=== PATIENT | male | born 1950 | race Caucasian/White ===

== ENCOUNTER → 2018-04-13 17:51 | Outpatient (CLI) | payer MEDICARE, MEDICAID, SELFPAY ==
--- NOTE | 2018-04-13 17:55 | DI.RAD.S_ITS ---
PROCEDURE: XR ABDOMEN MIN 2V INDICATIONS: swallowed crown/post TECHNIQUE: 2 views of the abdomen were acquired. COMPARISON: [facility], CR, XR CHEST 2V, 04/13/2018, 17:58. FINDINGS: Surgical changes and devices: None. Bowel: No pneumoperitoneum. The bowel gas pattern is normal. Soft tissues: No masses; visualized solid organ contours appear normal in size. No suspicious abdominal calcifications. No radiopaque foreign body identified. Bones: No suspicious bony abnormalities. IMPRESSION: Abdomen without acute radiographic abnormalities. No radiopaque foreign bodies identified. Dictated by: Hayden Liang M.D. on 04/13/2018 at 23:18 Approved by: Hayden Liang M.D. on 04/13/2018 at 23:20
--- NOTE | 2018-04-13 17:55 | DI.RAD.S_ITS ---
PROCEDURE: XR CHEST 2V INDICATIONS: swallowed crown/post TECHNIQUE: 2 views of the chest were acquired. COMPARISON: None. FINDINGS: Surgical changes and devices: None. Lungs and pleura: No pleural effusions or pneumothorax. There is hyperaeration with flattening of the bilateral hemidiaphragms. Minimal interstitial prominence. Mild streaky bibasilar opacities compatible with scarring and/or atelectasis. Mediastinum: Mediastinal contours are normal. Heart size is normal. Tortuous course of the thoracic aorta. Bones and chest wall: No suspicious bony abnormalities. Soft tissues appear unremarkable. No radiopaque foreign bodies identified in the chest. IMPRESSION: 1. Chest without acute cardiopulmonary abnormalities. 2. Findings compatible with chronic obstructive pulmonary physiology. 3. No radiopaque foreign body identified in the imaged portions of the chest and upper abdomen. Dictated by: Hayden Liang M.D. on 04/13/2018 at 23:16 Approved by: Hayden Liang M.D. on 04/13/2018 at 23:18
== END ==
PROVIDERS: Visit Provider Physician Assistant
DX: T18.9XXA Foreign body of alimentary tract, part unspecified, initial encounter (principal)
CPT/HCPCS: 71046; 74019

== ENCOUNTER → 2019-08-23 14:01 | Outpatient (CLI) | payer MEDICARE, SELFPAY ==
[2019-08-23 14:32] LABS: Add Manual Diff / Slide Review NO; Basophils Absolute Auto 0 /uL (0-100); Eosinophils Absolute Auto 100 /uL (0-450); Eosinophils Percent Auto 1.2 % (2-4); Hematocrit 43.1 % (41-53); Hemoglobin 14.9 g/dL (13.5-17.5); Lymphocytes Absolute Auto 1600 /uL (1100-4500); Lymphocytes Percent Auto 21.6 % (25-40); Mean Corpuscular HGB Conc 34.7 % (30-36); Mean Corpuscular Hemoglobin 28.7 PG (26-34); Mean Corpuscular Volume 82.9 fL (80-100); Monocytes Absolute Auto 700 /uL (0-900); Monocytes Percent Auto 9.2 % (3-14); Neutrophils Absolute Auto 5100 /uL (1500-7000); Platelet Count 152 X10^3/uL (150-400); Red Cell Distribution Width 13.8 % (11.6-14.8); White Blood Cell Count 7.4 X10^3/uL (4.5-11.0)
[2019-08-23 14:54] LABS: Alanine Aminotransferase 32 IU/L (<50); Albumin 4.7 g/dL (3.5-5.0); Albumin Globulin Ratio 1.4 (1.0-2.8); Alkaline Phosphatase 58 U/L (38-126); Aspartate Aminotransferase 29 IU/L (17-59); BUN Creatinine Ratio 25.6 (6-22); Blood Urea Nitrogen 21 mg/dL (9-20); Calcium 9.5 mg/dL (8.4-10.2); Carbon Dioxide 24 mmol/L (22-32); Chloride 102 mmol/L (98-107); Cholesterol 131 mg/dL (140-199); Estimated Glomerular Filt Rate > 60.0 mL/min (>60); Globulin 3.3 g/dL (1.7-4.1); Glucose 97 mg/dL (80-110); HDL Cholesterol 26 mg/dL (40-60); HEMOLYSIS < 15 (0-50); LDL Cholesterol Calculated 74 mg/dL (<100); Potassium 3.9 mmol/L (3.4-5.1); Sodium 136 mmol/L (137-145); Triglycerides 153 mg/dL (35-150)
[2019-08-23 15:25] LABS: Prostate Specific Antigen Scrn 1.29 ng/mL (0.1-4.0)
[2019-08-23 16:07] LABS: TSH w/ Reflex to FT4 5.66 uIU/mL (0.47-4.68)
[2019-08-23 16:38] LABS: Free T4, Direct Thyroxine 1.06 ng/dL (0.78-2.19)
== END ==
PROVIDERS: PCP Internal Medicine; Referring Provider Internal Medicine; Visit Provider Internal Medicine
DX: Z12.5 Encounter for screening for malignant neoplasm of prostate (principal); Z13.1 Encounter for screening for diabetes mellitus; Z13.220 Encounter for screening for lipoid disorders; Z13.6 Encounter for screening for cardiovascular disorders; B18.2 Chronic viral hepatitis C; I10 Essential (primary) hypertension
CPT/HCPCS: 36415; 80053; 80061; 84439; 84443; 85025; G0103

== ENCOUNTER → 2020-05-15 16:38 | Outpatient (CLI) | payer MEDICARE, SELFPAY ==
[2020-05-15 18:25] LABS: Add Manual Diff / Slide Review NO; Basophils Absolute Auto 0 /uL (0-100); Basophils Percent Auto 0.1 % (0-2); Eosinophils Absolute Auto 100 /uL (0-450); Hematocrit 41.5 % (41-53); Lymphocytes Absolute Auto 1800 /uL (1100-4500); Mean Corpuscular HGB Conc 33.6 % (30-36); Mean Corpuscular Volume 83.3 fL (80-100); Monocytes Absolute Auto 700 /uL (0-900); Monocytes Percent Auto 9.8 % (3-14); Neutrophils Absolute Auto 4800 /uL (1500-7000); Neutrophils Percent Auto 64.1 % (50-75); Platelet Count 154 X10^3/uL (150-400); Red Blood Cell Count 4.99 X10^6/uL (4.5-5.9); Red Cell Distribution Width 14.1 % (11.6-14.8); White Blood Cell Count 7.4 X10^3/uL (4.5-11.0)
[2020-05-15 18:26] LABS: INR 1.1 (0.9-1.3)
[2020-05-15 18:45] LABS: Alanine Aminotransferase 23 IU/L (<50); Albumin 4.1 g/dL (3.5-5.0); Albumin Globulin Ratio 1.5 (1.0-2.8); Alkaline Phosphatase 58 U/L (38-126); Aspartate Aminotransferase 24 IU/L (17-59); BUN Creatinine Ratio 23.2 (6-22); Bilirubin Total 0.7 mg/dL (0.2-1.3); Blood Urea Nitrogen 23 mg/dL (9-20); Carbon Dioxide 28 mmol/L (22-32); Chloride 102 mmol/L (98-107); Estimated Glomerular Filt Rate > 60.0 mL/min (>60); Globulin 2.8 g/dL (1.7-4.1); Glucose 89 mg/dL (80-110); HEMOLYSIS < 15 (0-50); Potassium 3.9 mmol/L (3.4-5.1); Sodium 136 mmol/L (137-145); Total Protein 6.9 g/dL (6.3-8.2)
== END ==
PROVIDERS: PCP Internal Medicine; Referring Provider Internal Medicine; Visit Provider Internal Medicine
DX: B18.2 Chronic viral hepatitis C (principal); I10 Essential (primary) hypertension; K74.60 Unspecified cirrhosis of liver
CPT/HCPCS: 36415; 80053; 85025; 85610

== ENCOUNTER → 2021-10-03 09:10 | Outpatient (CLI) | payer MEDICARE, MEDICAID, SELFPAY ==
[2021-10-03 11:08] LABS: Add Manual Diff / Slide Review NO; Basophils Absolute Auto 0 /uL (0-100); Basophils Percent Auto 0.1 % (0-2); Eosinophils Absolute Auto 100 /uL (0-450); Eosinophils Percent Auto 1.3 % (2-4); Hematocrit 43.9 % (41-53); Hemoglobin 15.1 g/dL (13.5-17.5); Lymphocytes Absolute Auto 1800 /uL (1100-4500); Lymphocytes Percent Auto 23.8 % (25-40); Mean Corpuscular HGB Conc 34.3 % (30-36); Mean Corpuscular Hemoglobin 28.3 PG (26-34); Mean Corpuscular Volume 82.5 fL (80-100); Monocytes Absolute Auto 600 /uL (0-900); Monocytes Percent Auto 8.1 % (3-14); Neutrophils Absolute Auto 5100 /uL (1500-7000); Neutrophils Percent Auto 66.7 % (50-75); Platelet Count 189 X10^3/uL (150-400); Red Blood Cell Count 5.32 X10^6/uL (4.5-5.9); White Blood Cell Count 7.7 X10^3/uL (4.5-11.0)
[2021-10-03 11:34] LABS: Alanine Aminotransferase 27 IU/L (<50); Albumin 4.7 g/dL (3.5-5.0); Albumin Globulin Ratio 1.6 (1.0-2.8); Alkaline Phosphatase 61 U/L (38-126); Aspartate Aminotransferase 29 IU/L (17-59); BUN Creatinine Ratio 28.3 (6-22); Bilirubin Total 1.4 mg/dL (0.2-1.3); Blood Urea Nitrogen 26 mg/dL (9-20); Calcium 9.2 mg/dL (8.4-10.2); Carbon Dioxide 26 mmol/L (22-32); Chloride 101 mmol/L (98-107); Cholesterol 138 mg/dL (140-199); Estimated Glomerular Filt Rate > 60 mL/min (>60); Glucose 99 mg/dL (80-110); HDL Cholesterol 30 mg/dL (40-60); HEMOLYSIS < 15 (0-50); LDL Cholesterol Calculated 85 mg/dL (<100); Potassium 3.9 mmol/L (3.4-5.1); Sodium 140 mmol/L (137-145); Total Protein 7.7 g/dL (6.3-8.2); Triglycerides 115 mg/dL (35-150)
[2021-10-04 06:34] LABS: Alpha Fetoprotein 2.5 ng/mL (0.0-8.4)
== END ==
PROVIDERS: PCP Internal Medicine; Referring Provider Internal Medicine; Visit Provider Internal Medicine
DX: I10 Essential (primary) hypertension (principal); K74.60 Unspecified cirrhosis of liver; B18.2 Chronic viral hepatitis C
CPT/HCPCS: 36415; 80053; 80061; 82105; 85025; 87522

== ENCOUNTER → 2022-01-08 13:52 | Outpatient (CLI) | payer MEDICARE, MEDICAID, SELFPAY ==
[2022-01-09 11:51] LABS: Mumps Virus IgG Antibody >300.0 AU/mL (Immune >10.9); Rubeola Measles IgG > 300.0 AU/mL (Immune >16.4)
[2022-01-10 14:51] LABS: QuantiFERON Mitogen Value >10.00 IU/mL (.); QuantiFERON Nil Value 0.05 IU/mL (.); QuantiFERON TB Gold Plus Negative (Negative); QuantiFERON TB1 Ag Value 0.06 IU/mL (.); QuantiFERON TB2 Ag Value 0.05 IU/mL (.)
[2022-01-10 15:41] LABS: Rubella Antibody IgG > 350.0 IU/mL (>15)
== END ==
PROVIDERS: PCP Internal Medicine; Referring Provider Internal Medicine; Visit Provider Internal Medicine
DX: Z01.84 Encounter for antibody response examination (principal)
CPT/HCPCS: 36415; 86480; 86735; 86762; 86765

== ENCOUNTER → 2022-06-24 16:45 | Outpatient (CLI) | payer MEDICARE, MEDICAID, SELFPAY ==
[2022-06-24 17:41] LABS: Add Manual Diff / Slide Review NO; Basophils Absolute Auto 0 /uL (0-100); Basophils Percent Auto 0.2 % (0-2); Eosinophils Absolute Auto 100 /uL (0-450); Eosinophils Percent Auto 1.6 % (2-4); Hematocrit 43.6 % (41-53); Hemoglobin 14.9 g/dL (13.5-17.5); Lymphocytes Absolute Auto 2200 /uL (1100-4500); Lymphocytes Percent Auto 23.8 % (25-40); Mean Corpuscular HGB Conc 34.1 % (30-36); Mean Corpuscular Hemoglobin 28.2 PG (26-34); Mean Corpuscular Volume 82.7 fL (80-100); Monocytes Absolute Auto 800 /uL (0-900); Monocytes Percent Auto 8.7 % (3-14); Neutrophils Absolute Auto 5900 /uL (1500-7000); Neutrophils Percent Auto 65.7 % (50-75); Platelet Count 183 X10^3/uL (150-400); Red Blood Cell Count 5.27 X10^6/uL (4.5-5.9); Red Cell Distribution Width 14.2 % (11.6-14.8)
[2022-06-24 18:06] LABS: Alanine Aminotransferase 28 IU/L (<50); Albumin 4.7 g/dL (3.5-5.0); Albumin Globulin Ratio 1.5 (1.0-2.8); Alkaline Phosphatase 60 U/L (38-126); Aspartate Aminotransferase 28 IU/L (17-59); BUN Creatinine Ratio 34.7 (6-22); Blood Urea Nitrogen 35 mg/dL (9-20); Calcium 9.4 mg/dL (8.4-10.2); Carbon Dioxide 24 mmol/L (22-32); Chloride 100 mmol/L (98-107); Estimated Glomerular Filt Rate > 60 mL/min (>60); Globulin 3.2 g/dL (1.7-4.1); Glucose 88 mg/dL (80-110); HEMOLYSIS < 15 (0-50); Potassium 3.4 mmol/L (3.4-5.1); Sodium 136 mmol/L (137-145); Total Protein 7.9 g/dL (6.3-8.2)
== END ==
PROVIDERS: PCP Internal Medicine; Referring Provider Internal Medicine; Visit Provider Internal Medicine
DX: B18.2 Chronic viral hepatitis C (principal); I10 Essential (primary) hypertension; J45.20 Mild intermittent asthma, uncomplicated; K74.60 Unspecified cirrhosis of liver
CPT/HCPCS: 36415; 80053; 85025

== ENCOUNTER → 2022-12-24 08:33 | Outpatient (CLI) | payer MEDICARE, MEDICAID, SELFPAY ==
[2022-12-24 10:08] LABS: Add Manual Diff / Slide Review NO; Basophils Absolute Auto 0 /uL (0-100); Basophils Percent Auto 0.2 % (0-2); Eosinophils Absolute Auto 100 /uL (0-450); Eosinophils Percent Auto 1.7 % (2-4); Hematocrit 41.5 % (41-53); Hemoglobin 14.3 g/dL (13.5-17.5); Lymphocytes Absolute Auto 1500 /uL (1100-4500); Lymphocytes Percent Auto 25.5 % (25-40); Mean Corpuscular HGB Conc 34.5 % (30-36); Mean Corpuscular Hemoglobin 29.1 PG (26-34); Mean Corpuscular Volume 84.3 fL (80-100); Monocytes Absolute Auto 700 /uL (0-900); Monocytes Percent Auto 11.5 % (3-14); Neutrophils Absolute Auto 3600 /uL (1500-7000); Neutrophils Percent Auto 61.1 % (50-75); Platelet Count 161 X10^3/uL (150-400); Red Blood Cell Count 4.92 X10^6/uL (4.5-5.9); Red Cell Distribution Width 14.1 % (11.6-14.8); White Blood Cell Count 5.9 X10^3/uL (4.5-11.0)
[2022-12-24 10:36] LABS: Alanine Aminotransferase 24 IU/L (<50); Albumin 4.3 g/dL (3.5-5.0); Albumin Globulin Ratio 1.6 (1.0-2.8); Alkaline Phosphatase 52 U/L (38-126); Aspartate Aminotransferase 24 IU/L (17-59); BUN Creatinine Ratio 26.4 (6-22); Bilirubin Total 1.3 mg/dL (0.2-1.3); Blood Urea Nitrogen 29 mg/dL (9-20); Calcium 9.5 mg/dL (8.4-10.2); Carbon Dioxide 27 mmol/L (22-32); Chloride 100 mmol/L (98-107); Estimated Glomerular Filt Rate > 60 mL/min (>60); Globulin 2.7 g/dL (1.7-4.1); Glucose 85 mg/dL (80-110); HEMOLYSIS < 15 (0-50); Potassium 3.9 mmol/L (3.4-5.1); Sodium 137 mmol/L (137-145)
== END ==
PROVIDERS: PCP Internal Medicine; Referring Provider Internal Medicine; Visit Provider Internal Medicine
DX: B18.2 Chronic viral hepatitis C (principal); K74.60 Unspecified cirrhosis of liver; I10 Essential (primary) hypertension
CPT/HCPCS: 36415; 80053; 85025

== ENCOUNTER → 2023-12-29 14:53 | Outpatient (CLI) | payer MEDICARE, MEDICAID, SELFPAY ==
[2023-12-29 15:49] LABS: Add Manual Diff / Slide Review NO; Basophils Absolute Auto 0 /uL (0-100); Basophils Percent Auto 0.1 % (0-2); Eosinophils Absolute Auto 100 /uL (0-450); Eosinophils Percent Auto 0.8 % (2-4); Hematocrit 44.2 % (41-53); Lymphocytes Absolute Auto 1400 /uL (1100-4500); Lymphocytes Percent Auto 16.4 % (25-40); Mean Corpuscular HGB Conc 33.9 % (30-36); Mean Corpuscular Hemoglobin 28.1 PG (26-34); Monocytes Absolute Auto 800 /uL (0-900); Monocytes Percent Auto 9.4 % (3-14); Neutrophils Absolute Auto 6400 /uL (1500-7000); Neutrophils Percent Auto 73.3 % (50-75); Platelet Count 201 X10^3/uL (150-400); Red Blood Cell Count 5.33 X10^6/uL (4.5-5.9); Red Cell Distribution Width 14.3 % (11.6-14.8); White Blood Cell Count 8.7 X10^3/uL (4.5-11.0)
[2023-12-29 15:59] LABS: Alanine Aminotransferase 32 IU/L (<50); Albumin 4.3 g/dL (3.5-5.0); Albumin Globulin Ratio 1.4 (1.0-2.8); Alkaline Phosphatase 67 U/L (38-126); Aspartate Aminotransferase 29 IU/L (17-59); BUN Creatinine Ratio 25.6 (6-22); Bilirubin Total 1.1 mg/dL (0.2-1.3); Blood Urea Nitrogen 30 mg/dL (9-20); Calcium 9.5 mg/dL (8.4-10.2); Carbon Dioxide 22 mmol/L (22-32); Chloride 102 mmol/L (98-107); Estimated Glomerular Filt Rate > 60 mL/min (>60); Globulin 3.1 g/dL (1.7-4.1); Glucose 99 mg/dL (80-110); HEMOLYSIS < 15 (0-50); Potassium 4.2 mmol/L (3.4-5.1); Sodium 134 mmol/L (137-145); Total Protein 7.4 g/dL (6.3-8.2)
== END ==
PROVIDERS: PCP Internal Medicine; Referring Provider Internal Medicine; Visit Provider Internal Medicine
DX: I10 Essential (primary) hypertension (principal); B18.2 Chronic viral hepatitis C; K74.60 Unspecified cirrhosis of liver; D64.9 Anemia, unspecified
CPT/HCPCS: 80053; 85025

== ENCOUNTER → 2024-07-30 16:27 | Outpatient (CLI) | payer MEDICARE, MEDICAID, SELFPAY ==
--- NOTE | 2024-07-30 16:30 | DI.RAD.S_ITS ---
PROCEDURE: XR ACUTE ABDOMEN SERIES INDICATIONS: constipation TECHNIQUE: One view chest and two views of the abdomen were acquired. COMPARISON: None. FINDINGS: Surgical changes and devices: None. Chest: Lungs are clear. Heart size is normal. No pleural effusions. No pneumoperitoneum. Chronic interstitial changes. Atherosclerotic vascular calcification noted in the aortic arch. Abdomen: Bowel gas pattern is normal. No suspicious calcifications. Visualized solid organ contours appear normal. Bones: No suspicious bony lesions. IMPRESSION: No acute abnormality. Approved by: Nakul Carpenter M.D. on 08/02/2024 at 11:51
== END ==
PROVIDERS: PCP Internal Medicine; Referring Provider Internal Medicine; Visit Provider Internal Medicine
DX: I70.0 Atherosclerosis of aorta (principal); K59.00 Constipation, unspecified
CPT/HCPCS: 74022

== ENCOUNTER → 2024-08-13 11:55 | Outpatient (CLI) | payer MEDICARE, MEDICAID, SELFPAY ==
[2024-08-13 12:15] LABS: Add Manual Diff / Slide Review NO; Basophils Absolute Auto 0 /uL (0-100); Basophils Percent Auto 0.1 % (0-2); Eosinophils Absolute Auto 100 /uL (0-450); Eosinophils Percent Auto 0.9 % (2-4); Hemoglobin 14.4 g/dL (13.5-17.5); Lymphocytes Absolute Auto 1300 /uL (1100-4500); Lymphocytes Percent Auto 16.9 % (25-40); Mean Corpuscular HGB Conc 34.2 % (30-36); Mean Corpuscular Hemoglobin 28.5 PG (26-34); Mean Corpuscular Volume 83.4 fL (80-100); Monocytes Absolute Auto 800 /uL (0-900); Monocytes Percent Auto 9.9 % (3-14); Neutrophils Absolute Auto 5600 /uL (1500-7000); Neutrophils Percent Auto 72.2 % (50-75); Platelet Count 173 X10^3/uL (150-400); Red Blood Cell Count 5.04 X10^6/uL (4.5-5.9); Red Cell Distribution Width 14.4 % (11.6-14.8); White Blood Cell Count 7.7 X10^3/uL (4.5-11.0)
[2024-08-13 12:29] LABS: Erythrocyte Sedimentation Rate 19 MM/HR (0-15)
[2024-08-13 12:39] LABS: Alanine Aminotransferase 33 IU/L (<50); Albumin 4.6 g/dL (3.5-5.0); Albumin Globulin Ratio 1.6 (1.0-2.8); Alkaline Phosphatase 77 U/L (38-126); Aspartate Aminotransferase 31 IU/L (17-59); BUN Creatinine Ratio 31.3 (6-22); Bilirubin Total 1.4 mg/dL (0.2-1.3); Blood Urea Nitrogen 31 mg/dL (9-20); Calcium 9.5 mg/dL (8.4-10.2); Carbon Dioxide 22 mmol/L (22-32); Chloride 99 mmol/L (98-107); Estimated Glomerular Filt Rate > 60 mL/min (>60); Globulin 2.8 g/dL (1.7-4.1); Glucose 110 mg/dL (70-99); HEMOLYSIS < 15 (0-50); Lipase 232 U/L (23-300); Sodium 133 mmol/L (137-145); Total Protein 7.4 g/dL (6.3-8.2)
== END ==
PROVIDERS: PCP Internal Medicine; Referring Provider Internal Medicine; Visit Provider Internal Medicine
DX: B18.2 Chronic viral hepatitis C (principal); K74.60 Unspecified cirrhosis of liver; I10 Essential (primary) hypertension; R10.9 Unspecified abdominal pain
CPT/HCPCS: 36415; 80053; 83690; 85025; 85651

== ENCOUNTER → 2024-08-18 15:28 | Outpatient (CLI) | payer MEDICARE, MEDICAID, SELFPAY ==
--- NOTE | 2024-08-18 15:29 | DI.CT.S_ITS ---
PROCEDURE: CT ABDOMEN PELVIS W CON INDICATIONS: left abd pain TECHNIQUE: After the administration of intravenous contrast, axial sections acquired from the lung bases to the pubic symphysis. Coronal and sagittal reformats were performed. For radiation dose reduction, the following was used: automated exposure control, adjustment of mA and/or kV according to patient size. COMPARISON: [facility], CR, XR ACUTE ABDOMEN SERIES, 07/30/2024, 16:26. FINDINGS: Image quality: Diagnostic. Lower Chest: Right lower lobe ground-glass pulmonary nodule measuring 0.6 cm, (5/16). ABDOMEN: Liver: Heterogeneous appearance. Left lobe oval nodule measuring 4 cm, (2/28). Indeterminate. Cyst measuring 5.6 cm. Liver surface appears nodular. Gallbladder: Multiple layering gallstones. No pericholecystic fluid. Biliary ducts: No biliary dilation. Pancreas: Ill-defined hypodense lesion in the neck of the pancreas measuring 3.7 x 3.1 cm, (2/47). Upstream pancreatic ductal dilatation measuring 1 cm. SMA encasement. Splenic artery encasement. Stranding adjacent to the celiac artery suggesting encasement. Splenic vein is occluded. There is tumor thrombus at the portal vein confluence measuring 1.8 cm, (3/47). SMV confluence encasement. Spleen: Size is within normal limits. Adrenal Glands: No adrenal nodules. Kidneys and Ureters: No hydronephrosis. Right kidney inferior pole mass measuring 1.1 cm, (2/49). Stomach and Bowel: No diverticulitis. The appendix is not dilated. No small bowel obstruction. The stomach appears thickened. Peritoneum: No abnormal intraperitoneal fluid. No free air. Ventral Wall: No significant ventral hernia. Abdominal Nodes: No retroperitoneal or mesenteric adenopathy by size criteria. Vessels: Pancreatic vascular involvement as described above. No abdominal aortic aneurysm. There is calcified atherosclerotic plaque. Upper abdominal varices. PELVIS: Pelvic Organs: Prostatomegaly. Heterogeneous appearance. Bladder: No bladder wall thickening, accounting for underdistention. Pelvic Nodes: No enlarged lymph nodes. Miscellaneous: Fat containing left inguinal hernia. Bones: No aggressive osseous abnormality. IMPRESSION: 1. Mass in the neck of the pancreas measuring 3.7 cm. Most consistent with pancreatic adenocarcinoma. Vascular involvement. Tumor thrombus at the portal vein confluence. -Pancreas multiphase CT may be helpful for further evaluation of the vasculature. 2. Concern for lesion in the left liver measuring 4 cm. Density is somewhat atypical for pancreatic metastasis. Recommend further evaluation with liver MRI. 3. Question cirrhosis. Layering gallstones. No ascites. 4. Small right renal mass measuring 1.1 cm. This could represent a small renal cell carcinoma. 5. Question thickening of the stomach. However, this could be due to underdistention. 6. Right lower lobe ground-glass pulmonary nodule measuring 0.6 cm. Dictated by: Jason Dangelo M.D. on 08/18/2024 at 16:50 Approved by: Jason Dangelo M.D. on 08/18/2024 at 17:14
== END ==
PROVIDERS: PCP Internal Medicine; Referring Provider Internal Medicine; Visit Provider Internal Medicine
DX: K86.9 Disease of pancreas, unspecified (principal); N28.89 Other specified disorders of kidney and ureter; K80.80 Other cholelithiasis without obstruction; R91.1 Solitary pulmonary nodule; N40.0 Benign prostatic hyperplasia without lower urinary tract symptoms; R10.9 Unspecified abdominal pain
CPT/HCPCS: 74177; Q9967

== ENCOUNTER 2024-12-19 08:20 | Emergency (ER) | payer MEDICARE, MEDICAID, SELFPAY ==
[2024-12-19] VITALS (21 sets, daily range): BP systolic 121–191; BP diastolic 64–100; PULSE 87–133; RESP 20–26; TEMP 36.4; O2SAT 83–98; BMI 22.4
--- NOTE | 2024-12-19 08:37 | ED_ITS ---
HPI - Abdominal Pain General Chief Complaint: Abdominal Pain Stated Complaint: Wokeup:in pain - all abd and lower back Time Seen by Provider: 12/19/24 08:34 History of Present Illness HPI narrative: Patient is 74-year-old male history of pancreatic cancer undergoing chemotherapy every 2 weeks to 4 chemo this week, hypertension and chronic pain presenting today with pretty severe abdominal pain. He takes oxycodone daily. He says he is usually able to manage it without any kind of problem however 2:45am this morning he woke up with pretty severe pain. No nausea no vomiting. He has taken multiple doses of oxycodone he says it is not working. Not passing gas no chest pain no fever no chills. Related Data Previous Rx's ?Medication ?Instructions ?Recorded clotrimazole 1 % topical cream 1 applictn topical TID 4 weeks 04/06/19 #113 grams fluticasone 500 mcg-salmeterol 50 1 inh inhalation BID #180 ea 12/15/23 mcg/dose blistr powdr for inhalation (Advair Diskus) albuterol sulfate 90 mcg/actuation 2 puff inhalation Q 6H PRN 01/30/24 aerosol inhaler shortness of breath or wheez ing #8.5 grams lisinopril 40 mg tablet 40 mg PO DAILY #90 tabs 04/25 10/15 sodium,potassium,mag sulfates 17.5 See Rx Instructions PO .COMPLEX 05/27/24 gram-3.13 gram-1.6 gram oral soln #354 mL (Suprep Bowel Prep Kit) nebulizers (Compact Compressor #1 ea 07/30/24 Nebulizer) oxycodone 5 mg tablet 5 mg PO Q4H PRN pain #60 tab s 09/13/24 hydrochlorothiazide 25 mg tablet 25 mg PO DAILY #90 ta bs 10/26/24 montelukast 10 mg tablet 10 mg PO DAILY #90 tabs 08/15 omeprazole 20 mg capsule,delayed 20 mg PO DAILY #90 ca ps 10/26/24 release albuterol sulfate 2.5 mg/3 mL 2.5 mg (3 mL) inhalation Q4H PRN 12/10/24 (0.083 %) solution for nebulization shortness of breat h or wheezing #180 mL Allergies Allergy/AdvReac Type Severity Reaction Status Date / Time No Known Drug Allergies Allergy Verified 08/13/24 11:31 Patient History Medical History Pancreatic adenocarcinoma Basal cell carcinoma Skin cancer (~1997) Alcoholism in recovery Hepatic cirrhosis due to chronic hepatitis C infection (~2006) Chronic hepatitis C (~2006) Asthma, mild intermittent, well-controlled (~1949) Essential hypertension Surgical History Anesthesia Status post Mohs surgery (~1999) History of hemorrhoidectomy (~1991) S/P rotator cuff repair (~2007) S/P carpal tunnel release (~2007) S/P hernia repair (~1962) Family History Mother Stroke Father Cancer Heart disease Social History Smoking Status: Never smoker Exam Initial Vital Signs Initial Vital Signs: Vital Signs Pulse Rate 101 H 12/19/24 08:34 Blood Pressure 191/79 H 12/19/24 08:34 Pulse Oximetry 95 12/19/24 08:34 GENERAL: Alert 74-year-old male in significant pain and in no acute distress. HEENT: Head atraumatic,EOMI, pupils reactive, face symmetric, moist mucous membranes CARDIOVASCULAR: Regular rate and rhythm without murmurs, rubs or gallops. RESPIRATORY: Breath sounds equal bilaterally, no wheezes rales or rhonchi. ABDOMEN: Soft, mildly diffusely tender no guarding no real EXTREMITIES: Normal range of motion, no clubbing or edema. Neurovascularly intact NEUROLOGICAL: Alert and oriented x4.Normal gait and speech. SKIN: Warm, dry, no laceration, no petechiae, no rashes or lesions. Course Orders Ordered: ED Orders 12/19/24 08:38 CT abdomen pelvis w con Stat 12/19/24 09:20 CBC Auto Diff [Complete Blood Count AUTO DIFF] Stat CMP [Comprehensive Metabolic Panel] Stat Lactate (Lactic Acid) Stat Lipase Stat 12/19/24 09:57 US abdomen limited Stat 12/19/24 11:59 Ictotest Urine Stat UA Complete [Urinalysis and Microscopic] Stat 12/19/24 12:05 Blood Culture Stat 12/19/24 14:05 Lactate (Lactic Acid) Stat Hydromorphone HCl (Hydromorphone 1 Mg/Ml Syringe) 1 mg IV Q2HR PRN PRN Reason: Pain, Moderate (4-6) Last Admin: 12/19/24 16:02 Dose: 1 mg Documented By: Admin: 12/19/24 08:51 Dose: 1 mg Documented By: EB Sodium Chloride (Normal Saline 0.9%) 1,000 mls @ 125 mls/hr IV CONT ILA Last Admin: 12/19/24 15:26 Dose: 125 mls/hr Documented By: EB Discontinued Medications Hydromorphone HCl (Hydromorphone 1 Mg/Ml Syringe) 1 mg IV NOW ONE Stop: 12/19/24 10:00 Last Admin: 12/19/24 10:08 Dose: 1 mg Documented By: Hydromorphone HCl (Hydromorphone Hcl 0.5 Mg/0.5 Ml Syringe) 0.5 mg IV Q1H PRN PRN Reason: Pain, Severe (7-10) Last Admin: 12/19/24 14:31 Dose: 0.5 mg Documented By: Admin: 12/19/24 12:51 Dose: 0.5 mg Documented By: Admin: 12/19/24 11:10 Dose: 0.5 mg Documented By: JORDI Sodium Chloride (Normal Saline 0.9%) 1,000 mls @ 1,000 mls/hr IV BOLUS ONE Stop: 12/19/24 10:56 Last Infusion: 12/19/24 12:08 Dose: Infused Documented By: Admin: 12/19/24 10:05 Dose: 1,000 mls/hr Documented By: Sodium Chloride (Normal Saline 0.9%) 1,944.54 mls @ 648.18 mls/hr 30 ml/kg infuse over 3 hr (1944.54 ml) IV NOW ONE Stop: 12/19/24 14:48 Last Infusion: 12/19/24 15:21 Dose: Infused Documented By: Admin: 12/19/24 12:26 Dose: 648.18 mls/hr Documented By: JORDI Piperacillin Sod/Tazobactam (Sod 4.5 gm/ Sodium Chloride) 100 mls @ 200 mls/hr IV NOW ONE Stop: 12/19/24 11:50 Last Infusion: 12/19/24 13:10 Dose: Infused Documented By: Admin: 12/19/24 12:25 Dose: 200 mls/hr Documented By: JORDI Ondansetron HCl (Ondansetron 4 Mg/2 Ml Inj) 4 mg IV NOW ONE Stop: 12/19/24 08:39 Last Admin: 12/19/24 08:55 Dose: 4 mg Documented By: JORDI Vital Signs Vital signs: Vital Signs - 8 hr 12/19/24 08:34 12/19/24 08:34 12/19/24 08:36 Temperature 97.6 F Pulse Rate 101 H 97 H Respiratory Rate 20 Blood Pressure 191/79 H 191/79 H Pulse Oximetry 95 95 Oxygen Delivery Method Room Air 12/19/24 08:45 12/19/24 08:45 12/19/24 09:04 Temperature Pulse Rate 93 H 106 H Respiratory Rate 25 H 24 Blood Pressure 151/74 H Pulse Oximetry 98 83 L Oxygen Delivery Method 12/19/24 09:06 12/19/24 09:06 12/19/24 09:15 Temperature Pulse Rate 95 H 90 Respiratory Rate 24 25 H Blood Pressure 158/68 H Pulse Oximetry 97 96 Oxygen Delivery Method 12/19/24 09:15 12/19/24 09:30 12/19/24 09:30 Temperature Pulse Rate 87 Respiratory Rate 23 Blood Pressure 154/77 H 149/73 H Pulse Oximetry 96 Oxygen Delivery Method 12/19/24 09:57 12/19/24 09:57 12/19/24 10:00 Temperature Pulse Rate 91 H Respiratory Rate 23 Blood Pressure 134/79 142/80 H Pulse Oximetry 96 Oxygen Delivery Method 12/19/24 10:00 12/19/24 10:30 12/19/24 10:30 Temperature Pulse Rate 92 H 89 Respiratory Rate 25 H 26 H Blood Pressure 179/82 H Pulse Oximetry 97 96 Oxygen Delivery Method 12/19/24 11:00 12/19/24 11:00 12/19/24 11:30 Temperature Pulse Rate 129 H Respiratory Rate Blood Pressure 168/83 H 133/66 Pulse Oximetry 97 Oxygen Delivery Method 12/19/24 11:30 12/19/24 11:49 12/19/24 11:49 Temperature Pulse Rate 109 H 133 H Respiratory Rate 23 Blood Pressure 169/76 H Pulse Oximetry 93 97 Oxygen Delivery Method 12/19/24 12:00 12/19/24 12:00 12/19/24 12:30 Temperature Pulse Rate 131 H Respiratory Rate Blood Pressure 166/79 H 159/76 H Pulse Oximetry 97 Oxygen Delivery Method 12/19/24 12:30 12/19/24 13:00 12/19/24 13:00 Temperature Pulse Rate 128 H 115 H Respiratory Rate 22 Blood Pressure 132/64 Pulse Oximetry 96 94 Oxygen Delivery Method 12/19/24 13:30 12/19/24 13:30 12/19/24 14:00 Temperature Pulse Rate 116 H Respiratory Rate 24 Blood Pressure 134/100 H 154/75 H Pulse Oximetry 96 Oxygen Delivery Method 12/19/24 14:00 12/19/24 14:30 12/19/24 14:30 Temperature Pulse Rate 117 H 113 H Respiratory Rate 24 25 H Blood Pressure 144/76 H Pulse Oximetry 96 94 Oxygen Delivery Method 12/19/24 15:00 12/19/24 15:00 12/19/24 15:30 Temperature Pulse Rate 119 H Respiratory Rate 24 Blood Pressure 121/71 126/76 Pulse Oximetry 94 Oxygen Delivery Method 12/19/24 15:30 Temperature Pulse Rate 121 H Respiratory Rate 20 Blood Pressure Pulse Oximetry 97 Oxygen Delivery Method MDM - Abdominal Pain Lab Data 12/19/24 09:20 12/19/24 09:20 Labs: Lab Results 12/19/24 12/19/24 12/19/24 Range/Units 09:20 11:20 11:59 WBC 10.7 (4.5-11.0) X10^3/uL RBC 3.99 L (4.5-5.9) X10^6/uL Hgb 11.6 L (13.5-17.5) g/dL Hct 33.8 L (41-53) % MCV 84.9 (80-100) fL MCH 29.1 (26-34) PG MCHC 34.3 (30-36) % RDW 17.8 H (11.6-14.8) % Plt Count 192 (150-400) X10^3/uL Neut % (Auto) 95.4 H (50-75) % Lymph % (Auto) 1.2 L (25-40) % Dickson % (Auto) 3.3 (3-14) % Eos % (Auto) 0.0 L (2-4) % Baso % (Auto) 0.1 (0-2) % Neut # (Auto) 74118 H (9546-5033) /uL Lymph # (Auto) 100 L (5875-0884) /uL Dickson # (Auto) 400 (0-900) /uL Eos # (Auto) 0 (0-450) /uL Baso # (Auto) 0 (0-100) /uL Sodium 127 L (137-145) mmol/L Potassium 3.3 L (3.4-5.1) mmol/L Chloride 93 L (98-107) mmol/L Carbon Dioxide 23 (22-32) mmol/L BUN 19 (9-20) mg/dL Creatinine 0.67 (0.66-1.25) mg/dL Estimated GFR > 60 (>60) mL/min BUN/Creatinine Ratio 28.4 H (6-22) Glucose 157 H (70-99) mg/dL Lactate 2.3 H 4.1 H* (0.7-2.1) mmol/L Calcium 8.7 (8.4-10.2) mg/dL Total Bilirubin 4.4 H (0.2-1.3) mg/dL AST 61 H (17-59) IU/L ALT 127 H (<50) IU/L Alkaline Phosphatase 636 H (38-126) U/L Total Protein 7.0 (6.3-8.2) g/dL Albumin 3.9 (3.5-5.0) g/dL Globulin 3.1 (1.7-4.1) g/dL Albumin/Globulin Ratio 1.3 (1.0-2.8) Lipase 35 (23-300) U/L Urine Color Yellow Urine Appearance Clear Urine pH 6.0 (4.5-8.0) Ur Specific Florence <=1.005 (1.000-1.035) Urine Protein Negative (Negative) Urine Glucose (UA) Negative (Negative) g/dL Urine Ketones Negative (NEGATIVE) Urine Occult Blood Negative (Negative) Urine Nitrate Negative (Negative) Urine Bilirubin 1+ H (NEGATIVE) Ur Bilirubin Confirm Positive H (Negative) Urine Urobilinogen 1.0 (0.2) E.U./dL Ur Leukocyte Esterase Negative (NEGATIVE) Urine RBC None seen (0-5/HPF) Urine WBC None seen (0-5/HPF) Ur Squamous Epith Cells None seen (0-5/HPF) Urine Bacteria Occasional (0-1) (None) Urine Yeast 0-1/hpf (None) Ur Culture Indicated? Cult not indicated Vol Urine Centrifuged 10ml (spun) 12/19/24 Range/Units 14:05 WBC (4.5-11.0) X10^3/uL RBC (4.5-5.9) X10^6/uL Hgb (13.5-17.5) g/dL Hct (41-53) % MCV (80-100) fL MCH (26-34) PG MCHC (30-36) % RDW (11.6-14.8) % Plt Count (150-400) X10^3/uL Neut % (Auto) (50-75) % Lymph % (Auto) (25-40) % Dickson % (Auto) (3-14) % Eos % (Auto) (2-4) % Baso % (Auto) (0-2) % Neut # (Auto) (4469-2598) /uL Lymph # (Auto) (7889-4212) /uL Dickson # (Auto) (0-900) /uL Eos # (Auto) (0-450) /uL Baso # (Auto) (0-100) /uL Sodium (137-145) mmol/L Potassium (3.4-5.1) mmol/L Chloride (98-107) mmol/L Carbon Dioxide (22-32) mmol/L BUN (9-20) mg/dL Creatinine (0.66-1.25) mg/dL Estimated GFR (>60) mL/min BUN/Creatinine Ratio (6-22) Glucose (70-99) mg/dL Lactate 2.7 H (0.7-2.1) mmol/L Calcium (8.4-10.2) mg/dL Total Bilirubin (0.2-1.3) mg/dL AST (17-59) IU/L ALT (<50) IU/L Alkaline Phosphatase (38-126) U/L Total Protein (6.3-8.2) g/dL Albumin (3.5-5.0) g/dL Globulin (1.7-4.1) g/dL Albumin/Globulin Ratio (1.0-2.8) Lipase (23-300) U/L Urine Color Urine Appearance Urine pH (4.5-8.0) Ur Specific Florence (1.000-1.035) Urine Protein (Negative) Urine Glucose (UA) (Negative) g/dL Urine Ketones (NEGATIVE) Urine Occult Blood (Negative) Urine Nitrate (Negative) Urine Bilirubin (NEGATIVE) Ur Bilirubin Confirm (Negative) Urine Urobilinogen (0.2) E.U./dL Ur Leukocyte Esterase (NEGATIVE) Urine RBC (0-5/HPF) Urine WBC (0-5/HPF) Ur Squamous Epith Cells (0-5/HPF) Urine Bacteria (None) Urine Yeast (None) Ur Culture Indicated? Vol Urine Centrifuged Imaging Data CT scan - abdomen/pelvis: Radiologist's Impression: PROCEDURE: CT ABDOMEN PELVIS W CON INDICATIONS: Prostate cancer severe pain TECHNIQUE: After the administration of intravenous contrast, axial sections acquired from the lung bases to the pubic symphysis. Coronal and sagittal reformats were performed. For radiation dose reduction, the following was used: automated exposure control, adjustment of mA and/or kV according to patient size. COMPARISON: [facility], CT, CT ABDOMEN PELVIS W CON, 08/18/2024, 16:32. FINDINGS: Image quality: Diagnostic. Lower Chest: Bibasilar scarring/atelectasis is seen. Heart size is enlarged, no pericardial effusion. Pacemaker leads are seen. Moderate to severe it atherosclerotic calcifications are seen in coronary arteries. Small hiatal hernia. ABDOMEN: Liver: No solid mass. Hepatomegaly. Cyst in right hepatic lobe is again seen. Previously described left lobe oval nodule now measures 4.8 x 5.2 cm in size compared to 4 cm on previous study series 2, image 40. Gallbladder: Distended gallbladder containing multiple calcified stones in its dependent portion. No gallbladder wall thickening. Biliary ducts: Prominent intrahepatic biliary ducts and common bile duct now measures up to 1.2 cm in diameter series 3, image 48. No gross calcified choledocholithiasis. Pancreas: Ill-defined hypodense mass involving pancreatic neck region with upstream pancreatic ductal dilatation not significantly changed from prior study. Mass currently measures 3.7 x 3.4 cm in size series 2, image 64. Encasement of splenic artery and SMA is again seen. Partial encasement of celiac axis is also noted. 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 Spleen: Mild splenomegaly, no discrete splenic lesion. Adrenal Glands: No adrenal nodules. Kidneys and Ureters: No hydronephrosis. No solid mass. Bilateral renal cortical cysts and peripelvic cysts are again seen unchanged from prior study. Previously described possible exophytic mass involving lower pole right kidney measures 1.1 cm in size is not significantly changed. Stomach and Bowel: There is no bowel obstruction or abnormal bowel wall thickening. Moderate fecal stasis in the colon is seen. No abscess collection. Peritoneum: No abnormal intraperitoneal fluid. No free air. Ventral Wall: No significant ventral hernia. Abdominal Nodes: No retroperitoneal or mesenteric adenopathy by size criteria. Vessels: Aorta and inferior vena cava are normal in size. PELVIS: Pelvic Organs: Enlarged prostate gland.. Bladder: No bladder wall thickening, accounting for underdistention. Pelvic Nodes: No enlarged lymph nodes. Miscellaneous: Left inguinal hernia containing fat only. Bones: No aggressive osseous abnormality. IMPRESSION: 1. Ill-defined mass involving neck of pancreas with adjacent vascular involvement and tumor thrombus in portal vein conference without significant change in overall tumor mass size compared to previous study. 2. Interval development of intra and extrahepatic biliary ductal dilatation without definite common bile duct stones seen. Finding likely represent tumor mass invasion of distal common bile duct or mass effect. 3. Interval increase in size of patient's known left hepatic lobe lesion as above concerning for metastatic disease. 4. Moderate to severe constipation and fecal impaction. No bowel obstruction. No free fluid or free air. 5. Possible small solid right renal mass unchanged from prior study. No obstructing renal stones or hydronephrosis. Dictated by: Manuel Strong M.D. on 12/19/2024 at 9:58 US - abdomen: Radiologist's Impression: PROCEDURE: US ABDOMEN LIMITED INDICATIONS: ruq TECHNIQUE: Real-time scanning was performed of the abdominal and retroperitoneal organs, with image documentation. COMPARISON: [facility], CT, CT ABDOMEN PELVIS W CON, 12/19/2024, 8:50. FINDINGS: Liver: Liver is mildly enlarged and measures 17.2 cm in length. Simple cyst is seen in right hepatic lobe measures 4.7 x 5.9 x 5.4 cm in size. Increased liver parenchymal echotexture is seen. No solid appearing hepatic lesion. Gallbladder: Distended gallbladder. Stones are seen in dependent portion of gallbladder lumen with gallbladder wall thickening. No definite sonographic Conway sign. Questionable pericholecystic fluid is seen. Biliary ducts: There is mild intrahepatic biliary ductal dilatation and dilatation of common bile duct measures up to 14 mm in diameter. Clusters of stones are noted within cystic duct. No definite common bile duct stone is seen. Pancreas: Pancreas is not well seen due to overlying bowel gas. Miscellaneous: No free abdominal fluid. IMPRESSION: 1. Cholelithiasis with gallbladder wall thickening, gallbladder distention and small amount of pericholecystic fluid concerning for acute cholecystitis. 2. Tiny stones are seen within cystic duct. No definite common bile duct stone. Dilatation of common bile duct measures up to 14 mm in diameter. Dictated by: Manuel Strong M.D. on 12/19/2024 at 11:35 MDM Narrative Medical decision making narrative: MDM CC: Abdominal pain Complicating co-morbidities: Prostate cancer hypertension Data collected from: Patient Medical records reviewed: Oncology record from 09/01/2024 reviewed, PCP record from 08/13/2024 reviewed Differential considered: Bowel obstruction bowel ischemia metastatic disease Exam documented above, pertinent findings include: Alert 74-year-old male appears in pain, abdomen mildly distended diffusely tender Lab Test results independently reviewed as above. Pertinent findings: Lactate 2.3-->4.1-->2.7 Bilirubin 4.4 previously 1.4 AST 61, ALT 127, alk-phos 636 lipase 35 CBC no leukocytosis WBC is 10 hemoglobin 11.6 hematocrit 33.8 CMP mild hyponatremia sodium 127 previously 133 hypokalemia potassium 3.3 chloride 93 no DENTON creatinine of 0.6 glucose 157 Independently rhythm strip on monitor has been reviewed sinus rhythm tachycardic Imaging studies independently reviewed: CT abdomen pelvis pancreatic mass, but says without significant change in overall tumor mass size compared to previous study. Interval development intra and extrahepatic biliary ductal dilation may likely represent tumor mass invasion of distal common bile duct or mass effect Ultrasound right upper quadrant shows cholelithiasis with gallbladder wall thickening pericholecystic fluid also stones within the cystic duct no definite common bile duct stone. Concern for cholecystitis Consultations: 1300 Dr. Lucio, hospitalist at accepts patient Treatments: Sepsis fluids Zosyn Dilaudid Re-evaluations: Patient having some increased pain and tachycardia. Blood pressure remained stable. Repeat lactate does show significant increase to 4.1. At which point sepsis identified and given fluids. 1300 After fluid re-evaluation tissue perfusion he has a cap refill less than 2 seconds in heart rate has improved 1500 repeat lactate is trending down words Discussion: Patient is 74-year-old male with known pancreatic cancer undergoing chemotherapy presenting today with increasing abdominal pain. He is found to have elevated bilirubin of 4.4 and elevated liver enzymes. CT initially concerning for an obstructive pancreatic mass ultrasound also showing cholelithiasis with cholecystitis and cystic duct stones. Possibly 2 processes happening at once. He will need ERCP in further GI evaluation and require higher level of care. Patient has received care at [facility] Critical Care Time Critical Care Time Critical Care Time: Yes Total Critical Care Time: 35 Attestation: The high probability of a clinically significant, sudden or life threatening deterioration of the [cardiovascular] system(s) required my full and direct attention, intervention and personal management. The aggregate critical care time was [45] minutes. This time is in addition to time spent performing reported procedures but includes the following: [x] Data Review and interpretation [x] Patient assessment and monitoring of vital signs [x] Documentation [x] Medication orders and management Discharge Plan Departure Patient Disposition: [facility] Clinical Impression: Cholelithiasis and acute cholecystitis with obstruction, Mass of head of pancreas, Sepsis Prescriptions: No Action clotrimazole 1 % cream 1 applictn TOP TID 28 Days Qty: 113 1RF fluticasone propion-salmeterol [Advair Diskus] 500-50 mcg/dose blister with device 1 inh inhalation BID Qty: 180 6RF albuterol sulfate 90 mcg/actuation HFA aerosol inhaler 2 puff INHALATION Q6H PRN (Reason: shortness of breath or wheezing) Qty: 8.5 11RF lisinopril 40 mg tablet 40 mg PO DAILY Qty: 90 3RF sodium,potassium,mag sulfates [Suprep Bowel Prep Kit] 17.5-3.13-1.6 gram recon soln See Rx Instructions PO .COMPLEX Qty: 354 0RF Rx Instructions: Take as directed by Physician oxycodone 5 mg tablet 5 mg PO Q4H MDD 6 tabs PRN (Reason: pain) Qty: 60 0RF hydrochlorothiazide 25 mg tablet 25 mg PO DAILY Qty: 90 3RF omeprazole 20 mg capsule,delayed release(DR/EC) 20 mg PO DAILY Qty: 90 3RF montelukast 10 mg tablet 10 mg PO DAILY Qty: 90 3RF albuterol sulfate 2.5 mg /3 mL (0.083 %) solution for nebulization 2.5 mg INHALATION Q4H PRN (Reason: shortness of breath or wheezing) Qty: 180 3RF Rx Instructions: Inhale 1 contents of 1 vial in nebulizer every 4 hrs if needed. (DME) nebulizers [Compact Compressor Nebulizer] Misc See Rx Instructions .Route Qty: 1 0RF Rx Instructions: As directed Referrals: Wood Victor MD [Primary Care Provider, Internal Medicine]
[2024-12-19] MEDS: ONDANSETRON 4 MG/2 ML INJ IV (08:55)
[2024-12-19 09:42] LABS: Add Manual Diff / Slide Review NO; Hematocrit 33.8 % (41-53); Hemoglobin 11.6 g/dL (13.5-17.5); Lymphocytes Absolute Auto 100 /uL (1100-4500); Mean Corpuscular HGB Conc 34.3 % (30-36); Mean Corpuscular Hemoglobin 29.1 PG (26-34); Mean Corpuscular Volume 84.9 fL (80-100); Platelet Count 192 X10^3/uL (150-400)
[2024-12-19 09:48] LABS: Lactate (Lactic Acid) 2.3 mmol/L (0.7-2.1)
[2024-12-19 09:49] LABS: Alanine Aminotransferase 127 IU/L (<50); Albumin 3.9 g/dL (3.5-5.0); Albumin Globulin Ratio 1.3 (1.0-2.8); Alkaline Phosphatase 636 U/L (38-126); Blood Urea Nitrogen 19 mg/dL (9-20); Calcium 8.7 mg/dL (8.4-10.2); Carbon Dioxide 23 mmol/L (22-32); Chloride 93 mmol/L (98-107); Estimated Glomerular Filt Rate > 60 mL/min (>60); Globulin 3.1 g/dL (1.7-4.1); Glucose 157 mg/dL (70-99); HEMOLYSIS < 15 (0-50); Lipase 35 U/L (23-300); Potassium 3.3 mmol/L (3.4-5.1); Sodium 127 mmol/L (137-145); Total Protein 7.0 g/dL (6.3-8.2)
--- NOTE | 2024-12-19 09:57 | DI.US.S_ITS ---
PROCEDURE: US ABDOMEN LIMITED INDICATIONS: ruq TECHNIQUE: Real-time scanning was performed of the abdominal and retroperitoneal organs, with image documentation. COMPARISON: [facility], CT, CT ABDOMEN PELVIS W CON, 12/19/2024, 8:50. FINDINGS: Liver: Liver is mildly enlarged and measures 17.2 cm in length. Simple cyst is seen in right hepatic lobe measures 4.7 x 5.9 x 5.4 cm in size. Increased liver parenchymal echotexture is seen. No solid appearing hepatic lesion. Gallbladder: Distended gallbladder. Stones are seen in dependent portion of gallbladder lumen with gallbladder wall thickening. No definite sonographic Conway sign. Questionable pericholecystic fluid is seen. Biliary ducts: There is mild intrahepatic biliary ductal dilatation and dilatation of common bile duct measures up to 14 mm in diameter. Clusters of stones are noted within cystic duct. No definite common bile duct stone is seen. Pancreas: Pancreas is not well seen due to overlying bowel gas. Miscellaneous: No free abdominal fluid. IMPRESSION: 1. Cholelithiasis with gallbladder wall thickening, gallbladder distention and small amount of pericholecystic fluid concerning for acute cholecystitis. 2. Tiny stones are seen within cystic duct. No definite common bile duct stone. Dilatation of common bile duct measures up to 14 mm in diameter. Dictated by: Manuel Strong M.D. on 12/19/2024 at 11:35 Approved by: Manuel Strong M.D. on 12/19/2024 at 11:38
[2024-12-19] MEDS: SODIUM CHLORIDE 0.9% 1,000 ML 1000 ML IV (10:05)
[2024-12-19 11:03] LABS: Reflexed Lactate in 2 Hours Y
[2024-12-19 11:49] LABS: Lactate 2HR (Lactic Acid Rflx) 4.1 mmol/L (0.7-2.1)
[2024-12-19] MEDS: PIPERACILLIN/TAZO 4.5 GM in SODIUM CHLORIDE 0.9% 100 ML IV (12:25)
[2024-12-19] MEDS: SODIUM CHLORIDE 0.9% 648.18 ML IV (12:26)
[2024-12-19 13:03] LABS: Appearance Urine UA CLEAR; Bilirubin Urine UA 1+ (NEGATIVE); Color Urine UA YELLOW; Glucose Urine UA NEGATIVE (Negative); Ketones Urine UA NEGATIVE (NEGATIVE); Leukocyte Esterase Urine UA NEGATIVE (NEGATIVE); Nitrite Urine UA NEGATIVE (Negative); Occult Blood Urine UA NEGATIVE (Negative); Protein Urine UA NEGATIVE (Negative); Specific Gravity Urine UA <=1.005 (1.000-1.035); Urobilinogen Urine UA 1.0 E.U./dL (0.2); pH Urine UA 6.0 (4.5-8.0)
[2024-12-19 13:11] LABS: Ictotest Urine Positive (Negative)
[2024-12-19 13:13] LABS: Culture Indicated Urine Cult Not Indicated
[2024-12-19 14:29] LABS: Lactate (Lactic Acid) 2.7 mmol/L (0.7-2.1)
[2024-12-19] MEDS: SODIUM CHLORIDE 0.9% 1,000 ML 125 ML IV (15:26)
[2024-12-19 15:46] LABS: Reflexed Lactate in 2 Hours Y
--- NOTE | 2024-12-19 16:04 | PC.NURSE ---
1mg dilaudid given at time of transport to for comfort & pain control
--- NOTE | 2024-12-19 16:16 | PC.NURSE ---
This RN attempted to call for RN report to at 1615. The nurse (Galina Acevedo) was unavailable for report and callback number was left with document management technician Madhav. informed that pt had already left.
--- NOTE | 2024-12-19 16:40 | PC.NURSE ---
Report given to Galina TALAVERA at [phone] . Completed at 1640.
[2024-12-19 21:58] LABS: Acinetobacter calcoa-baumannii Not Detected (Not Detect); Bacteroides fragilis Not Detected (Not Detect); CTX-M Resistance Not Detected (Not Detect); Candida auris Not Detected (Not Detect); Candida glabrata Not Detected (Not Detect); Cryptococcus neoformans/gatti Not Detected (Not Detect); Enterobacterales Detected (Not Detect); Enterococcus faecalis Not Detected (Not Detect); Enterococcus faecium Not Detected (Not Detect); IMP Resistance Not Detected (Not Detect); KPC Resistance Not Detected (Not Detect); Klebsiella aerogenes Not Detected (Not Detect); NDM Resistance Not Detected (Not Detect); OXA-48-like Resistance Not Detected (Not Detect); Proteus species Not Detected (Not Detect); Serratia marcescens Not Detected (Not Detect); Staphylococcus epidermidis Not Detected (Not Detect); Staphylococcus lugdunensis Not Detected (Not Detect); Staphylococcus species Not Detected (Not Detect); Stenotrophomonas maltophilia Not Detected (Not Detect); Streptococcus agalactiae (Gr B Not Detected (Not Detect); Streptococcus pneumonia Not Detected (Not Detect); Streptococcus pyogenes (Gr A) Not Detected (Not Detect); Streptococcus species Not Detected (Not Detect); VIM Resistance Not Detected (Not Detect); mcr-1 Resistance Not Detected (Not Detect)
== END 2024-12-19 16:20 | disposition short-term general hospital (02) ==
PROVIDERS: Emergency Provider Emergency Medicine; PCP Internal Medicine
DX: K80.01 Calculus of gallbladder with acute cholecystitis with obstruction (principal); K86.89 Other specified diseases of pancreas; A41.9 Sepsis, unspecified organism; C25.9 Malignant neoplasm of pancreas, unspecified; R10.11 Right upper quadrant pain; M54.50 Low back pain, unspecified; Z92.21 Personal history of antineoplastic chemotherapy
CPT/HCPCS: 36415; 74177; 76705; 80053; 81001; 83605; 83690; 85025; 87040; 87077; 87154; 87186; 96361; 96365; 96375; 96376; 99284; J1171; J2405; J2543; Q9967